=== PATIENT | male | born 1975 | race Caucasian/White ===

== ENCOUNTER 2023-01-17 12:36 | Emergency (ER) | payer OTHER ==
[2023-01-17] MEDS ORDERED: Bacitracin Oint 28.35 GM Tube TOP SCH ×2 (15:20→22:00)
== END 2023-01-17 16:12 | disposition home or self-care (01) ==
LOC: MW.ED 12:36
DX: T23.251A Burn of second degree of right palm, initial encounter (principal); Z72.0 Tobacco use; X10.2XXA Contact with fats and cooking oils, initial encounter; Y99.0 Civilian activity done for income or pay
CPT/HCPCS: 99283; A9270

== ENCOUNTER 2024-04-15 21:37 | Emergency (ER) | payer SELFPAY ==
[2024-04-15] MEDS: Lidocaine 1% 10 ML MDV INJECT ONE (21:54)
== END 2024-04-15 23:51 | disposition home or self-care (01) ==
LOC: MW.ED 21:37
DX: S61.210A Laceration without foreign body of right index finger without damage to nail, initial encounter (principal); Z75.8 Other problems related to medical facilities and other health care; X58.XXXA Exposure to other specified factors, initial encounter
CPT/HCPCS: 12002; 73140-26-F6; 73140-F6; 99283; J3490